=== PATIENT | male | born 1960 | race Caucasian/White ===

== ENCOUNTER → 2023-10-21 12:00 | Outpatient (REF) | payer MEDICARE, SELFPAY | LOC: DHSLP 12:00 | PROVIDERS: ATTENDING PHYSICIAN Internal Medicine Cardiovascular Disease | DX: G47.33 Obstructive sleep apnea (adult) (pediatric) (principal); R09.02 Hypoxemia | CPT/HCPCS: 95800 ==

== ENCOUNTER → 2023-10-24 11:16 | Outpatient (REF) | payer MEDICARE, SELFPAY | LOC: DHCBC/DCA 11:16 | PROVIDERS: ATTENDING PHYSICIAN Internal Medicine Cardiovascular Disease; FAMILY PHYSICIAN Family Medicine | DX: I25.10 Atherosclerotic heart disease of native coronary artery without angina pectoris (principal); Z98.890 Other specified postprocedural states; E78.00 Pure hypercholesterolemia, unspecified | CPT/HCPCS: 78452; 93017; A9500 ==

== ENCOUNTER → 2023-11-02 15:52 | Outpatient (REF) | payer MEDICARE, SELFPAY | LOC: DHCBS MAIN 15:52 | PROVIDERS: ATTENDING PHYSICIAN Internal Medicine Cardiovascular Disease; FAMILY PHYSICIAN Family Medicine | DX: I25.10 Atherosclerotic heart disease of native coronary artery without angina pectoris (principal); R06.02 Shortness of breath | CPT/HCPCS: 93306 ==

== ENCOUNTER → 2024-05-11 17:00 | Outpatient (REF) | payer MEDICARE, SELFPAY | LOC: RAD 17:00 | PROVIDERS: ATTENDING PHYSICIAN Internal Medicine Endocrinology, Diabetes & Metabolism; FAMILY PHYSICIAN Family Medicine | DX: E83.52 Hypercalcemia (principal); R79.89 Other specified abnormal findings of blood chemistry | CPT/HCPCS: 76536 ==

== ENCOUNTER → 2024-05-14 08:43 | Outpatient (REF) | payer MEDICARE, SELFPAY | LOC: RAD 08:43 | PROVIDERS: ATTENDING PHYSICIAN Internal Medicine Endocrinology, Diabetes & Metabolism; FAMILY PHYSICIAN Family Medicine | DX: E83.52 Hypercalcemia (principal); R79.89 Other specified abnormal findings of blood chemistry | CPT/HCPCS: 78071; A9500 ==

== ENCOUNTER → 2024-06-26 09:27 | Day surgery (SDC) | payer MEDICARE, SELFPAY ==
[2024-06-26 10:52] LABS: APTT 31.4 Sec (23.4-35.0); INR 1.05
[2024-06-26 11:04] LABS: ALT (SGPT) 257 U/L (0-50); AST (SGOT) 168 U/L (17-59); Albumin 4.3 g/dl (3.5-5.0); Alkaline Phosphatase 88 U/L (38-126); Blood Urea Nitrogen 11 mg/dl (9-20); Calcium 10.6 mg/dl (8.4-10.2); Carbon Dioxide 30 mmol/L (22-30); Chloride 103 mmol/L (98-107); Glucose 93 mg/dl (70-99); Potassium 4.3 mmol/L (3.5-5.1); Sodium 144 mmol/L (135-145); Total Bilirubin 0.8 mg/dl (0.2-1.3); Total Protein 7.2 g/dl (6.3-8.2); eGFR > 60.00
[2024-06-26 11:44] LABS: Hematocrit 42.3 % (39.0-52.0); Hemoglobin 14.3 g/dL (13.0-18.0); Mean Corp Hgb Conc. 33.8 g/dL (33.0-37.0); Mean Corpuscular Hgb 32.7 pg (27.0-31.0); Mean Corpuscular Volume 96.8 fL (80.0-94.0); Mean Platelet Volume 11.4 fL (7.4-10.4); Platelet Count 137 10^3/uL (130-400); Red Blood Cell Count 4.37 10^6/uL (4.70-6.10); Red Cell Dist. Width 12.5 % (11.5-14.5); White Blood Cell Count 4.3 10^3/uL (4.8-10.8)
== END ==
LOC: SDSPAT 09:27
PROVIDERS: ATTENDING PHYSICIAN Surgery; FAMILY PHYSICIAN Family Medicine; OTHER PHYSICIAN Internal Medicine Cardiovascular Disease
DX: Z01.812 Encounter for preprocedural laboratory examination (principal)
CPT/HCPCS: 80053; 36415; 85027; 85610; 85730

== ENCOUNTER 2024-07-03 06:34 | Day surgery (SDC) | payer MEDICARE, SELFPAY ==
[2024-06-26 12:31] VITALS: BMI 28.8
--- NOTE | 2024-06-28 10:25 | PTCARENOTE ---
Elva in Dr. Alba's office made aware of AST 168, ALT 257.
[2024-07-03] VITALS (9 sets, daily range): BP systolic 121–146; BP diastolic 72–83; BMI 28.8
[2024-07-03] MEDS: NORMOSOL-R/PLASMALYTE-A 1000 IV (09:00)
[2024-07-03] MEDS: HEPARIN 5000 UNITS SC (09:12)
[2024-07-03] MEDS: NEURONTIN 300 MG PO (09:12)
[2024-07-03] MEDS: TYLENOL 1000 MG PO (09:12)
[2024-07-03 11:34] LABS: Turbo PTH 205.3 pg/ml (13.6-85.8)
[2024-07-03 12:12] LABS: Turbo PTH 34.5 pg/ml (13.6-85.8)
--- NOTE | 2024-07-03 12:24 | OR.RPT ---
Operative Report
Operative Report
Date of Operation: July 03, 2024
Preoperative Diagnosis: �Parathyroid hyperparathyroidism - E210
Postoperative Diagnosis: Same
Surgeon: Jonah Alba M.D.
Operation: Minimally Invasive Right Inferior Parathyroidectomy - 21791
Anesthesia: GET
Estimated Blood Loss: 5cc
Drains: None
Specimen: �Right inferior neck nodule, rule out parathyroid adenoma
Complications: �None
Procedure:
The patient was taken to the operating room and placed in the usual supine position. After adequate general endotracheal anesthesia was established, the patient's neck was extended, prepped, and draped in the typical sterile fashion. A 4 cm
transcervical incision was made two fingerbreadths above the sternal notch. The skin incision was made with the #15 blade, and this was taken through the skin into the subcutaneous tissue. The underlying platysma muscle was divided, and subplatysmal
flaps were created superiorly to the thyroid cartilage and inferiorly to the sternal notch. Strap muscles were identified and at the midline.
Attention was turned to the patient's right side of the neck. The right thyroid lobe was mobilized medially. During this process, the right recurrent laryngeal nerve was identified and preserved throughout the surgery. The right lower neck nodule
was identified and noted to be enlarged, excised, and sent to the pathology department, which showed a hypercellular parathyroid gland. The intraoperative PTH levels normalized.
After obtaining adequate hemostasis, the strap muscles were reapproximated with #3-0 Vicryl in a running fashion. The platysma muscle was reapproximated with #3-0 Vicryl in an interrupted fashion, and the skin was approximated with #4-0 Monocryl in
a running subcuticular fashion. The Steri-Strips and sterile dressings were placed. The patient tolerated the procedure well. The final instrument, needle, and sponge counts were correct. The patient was extubated and transferred to the PACU.
== END 2024-07-03 14:40 | disposition home or self-care (01) ==
LOC: SDS 06:34
PROVIDERS: ATTENDING PHYSICIAN Surgery; FAMILY PHYSICIAN Family Medicine
DX: E21.3 Hyperparathyroidism, unspecified (principal)
CPT/HCPCS: 60500; 88305; 88332; 83970; 88331; C1776